=== PATIENT | male | born 1995 | race Caucasian/White ===

== ENCOUNTER 2018-10-06 11:34 | Emergency (ER) | payer MEDICAID ==
[~2018-10-06] VITALS: Ht 170.2 cm; Wt 72.6 kg
[2018-10-06 11:44] VITALS: BP 127/78
--- NOTE | 2018-10-06 11:44 | NUR ---
PT AMBULATED TO ER BED 1
--- NOTE | 2018-10-06 11:55 | NUR ---
PT BIB SELF WITH C/O FLUID FILLED RASH TO AXILLA X 1 WK WITH A COUPLE AND WORSEN SINCE CRUST, REDNESS NOTED NOW ---BURNING PAIN. RASH APPEARS OPEN WITH DRIED CRUST AROUND IT. PAINFUL WHILE MOVING HIS AXILLA . HX--DENIES RX---NONE
--- NOTE | 2018-10-06 12:33 | NUR ---
DR. JUAREZ BEDSIDE EVALUATING PT
[2018-10-06 13:17] VITALS: BP 127/78
--- NOTE | 2018-10-06 13:17 | NUR ---
Patient discharged with v/s stable. Written and verbal after care instructions given and explained. Patient alert, oriented and verbalized understanding of instructions. Ambulatory with steady gait. All questions addressed prior to discharge. ID band removed. Patient advised to follow up with PMD. Rx of ACYCLOVIR, PREDNISONE AND CLOTRIMAZOLE given. Patient educated on indication of medication including possible reaction and side effects. Opportunity to ask questions provided and answered.
== END 2018-10-06 13:17 | disposition home or self-care (01) ==
LOC: MED 11:34
DX: B02.9 Zoster without complications (principal)
CPT/HCPCS: 99283

== ENCOUNTER 2018-10-09 20:32 | Emergency (ER) | payer MEDICAID ==
[~2018-10-09] VITALS: Ht 170.2 cm; Wt 72.6 kg
[2018-10-09 20:59] VITALS: BP 142/77
--- NOTE | 2018-10-09 21:11 | NUR ---
PT AMBULATED TO BED 03.
--- NOTE | 2018-10-09 21:20 | NUR ---
PT BIB SELF C/O RIGHT LESIONS. PT STATES LESIONS STARTED OFF A PIMPLE LIKE BUMP X1 WEEK AGO AND HAS PROGRESSED INTO FLAT MUTIPLE LESIONS TO AIR PIT; SCABS PRESENT, MILD RESDNESS AND SWELLING, NO DISCHARGE AT THIS TIME. PT STATES 9/10 BURNING PAIN TO SITE. PT STATES HE WAS SEEN AT [facility] 2 DAYS AGO AND WAS DX W/ SHINGLES AND WAS GIVEN 2 RX, PT STATES HE HAS BEEN COMPLIANT W/ MEDS BUT LESIONS ARE NOT SUBSIDING. DENIES N/V. PT ACTING APPROPRIATLY, SPEAKING IN CLEAR AND COMPLETE SENTENCES. BREATHING EQUAL AND UNLABORED. PT IN PLACED IN BED, IN GOWN; SAFETY PRECAUTIONS IN PLACE. PENDING ERMD EVAL. PMH: DENIES
--- NOTE | 2018-10-09 23:20 | NUR ---
Patient discharged with v/s stable. Patient acting appropriatly, speaking in clear and complete sentences. Patient states 0/10 pain at this time, and states he ready to go home. Written and verbal after care instructions given and explained. Patient alert, oriented and verbalized understanding of instructions. Ambulatory with steady gait. All questions addressed prior to discharge. ID band removed. Patient advised to follow up with PMD. Rx of Motrin given. Patient educated on indication of medication including possible reaction and side effects. Opportunity to ask questions provided and answered.
[2018-10-09 23:22] VITALS: BP 139/71
== END 2018-10-09 23:20 | disposition home or self-care (01) ==
LOC: MED 20:32
DX: B02.9 Zoster without complications (principal); Z98.890 Other specified postprocedural states
CPT/HCPCS: 99283

== ENCOUNTER 2018-10-16 22:19 | Emergency (ER) | payer MEDICAID ==
[~2018-10-16] VITALS: Ht 170.2 cm; Wt 72.6 kg
[2018-10-16 22:25] VITALS: BP 152/90
--- NOTE | 2018-10-16 22:25 | NUR ---
ASSUMED CARE OF PT AT THIS TIME. C/O RIGHT RIB PAIN S/P INJURY WHILE WRESTLING X 12 HOURS AGO. AAOX4 WITH EVEN AND STEADY GAIT; PATIENT STATES PAIN OF 7/10; VSS; PATIENT POSITIONED FOR COMFORT; ER MD MADE AWARE OF PT STATUS. WILL CONTINUE TO MONITOR.
--- NOTE | 2018-10-16 22:26 | NUR ---
John trinh in [facility] - 10/16/18 at 2227 by AMANDEEP PT TAKEN TO BED 6
--- NOTE | 2018-10-16 22:37 | NUR ---
PT TAKEN TO BED 7
--- NOTE | 2018-10-16 22:41 | NUR ---
PT TAKEN TO RAD
--- NOTE | 2018-10-16 22:47 | NUR ---
PT RETURN FROM RAD TO CHAIR E
--- NOTE | 2018-10-17 00:07 | NUR ---
Dr. Parks examining patient.
[2018-10-17] MEDS ORDERED: KETOROLAC 30 MG/ML VIAL IM ONE (00:20)
[2018-10-17 00:40] VITALS: BP 148/81
== END 2018-10-17 00:40 | disposition home or self-care (01) ==
LOC: MED 22:19
DX: S22.31XA Fracture of one rib, right side, initial encounter for closed fracture (principal); X58.XXXA Exposure to other specified factors, initial encounter; Y93.72 Activity, wrestling; Y92.89 Other specified places as the place of occurrence of the external cause; Y99.8 Other external cause status
CPT/HCPCS: 71100; 99283

== ENCOUNTER 2018-12-18 19:27 | Emergency (ER) | payer MEDICAID ==
[~2018-12-18] VITALS: Ht 170.2 cm; Wt 75.7 kg
[2018-12-18 19:32] VITALS: BP 132/76
--- NOTE | 2018-12-18 19:38 | NUR ---
PT AMBULATED TO LOBBY WITH VSS.
--- NOTE | 2018-12-18 19:58 | NUR ---
PATIENT PRESENTS TO ED WITH C.O LOW BACK PAIN . PT STATES PAIN STARTED 1 WEEK AGO, NONTRAUMATIC. PATIENT DENIES N/V/D; SKIN IS PINK/WARM/DRY; AAOX4 WITH EVEN AND STEADY GAIT; LUNGS CLEAR BL; HR EVEN AND REGULAR; PT DENIES ANY FEVER, CP, SOB, OR COUGH AT THIS TIME; PATIENT STATES PAIN OF 8/10 AT THIS TIME; VSS; PATIENT POSITIONED FOR COMFORT; HOB ELEVATED; BEDRAILS UP X2; BED DOWN. ER MD MADE AWARE OF PT STATUS.
--- NOTE | 2018-12-18 19:59 | NUR ---
JEFF SANDS EVALUATING PATIENT
--- NOTE | 2018-12-18 20:02 | NUR ---
Patient discharged with v/s stable. Written and verbal after care instructions given and explained. Patient alert, oriented and verbalized understanding of instructions. Ambulatory with steady gait. All questions addressed prior to discharge. ID band removed. Patient advised to follow up with PMD. Rx of VOLTAREN TYLENOL 500MG given. Patient educated on indication of medication including possible reaction and side effects. Opportunity to ask questions provided and answered.
[2018-12-18 20:03] VITALS: BP 132/76
== END 2018-12-18 20:03 | disposition home or self-care (01) ==
LOC: MED 19:27
DX: S39.012A Strain of muscle, fascia and tendon of lower back, initial encounter (principal); X50.0XXA Overexertion from strenuous movement or load, initial encounter; Y93.B3 Activity, free weights; Y92.89 Other specified places as the place of occurrence of the external cause; Y99.8 Other external cause status
CPT/HCPCS: 99283